=== PATIENT | male | born 1935 | race Caucasian/White ===

== ENCOUNTER → 2018-08-20 | Outpatient (REF) | payer MEDICARE, BC | LOC: M LAB REF 16:59 | PROVIDERS: ATTEND Surgery | DX: L72.3 Sebaceous cyst (principal) ==

== ENCOUNTER 2020-07-01 17:33 | Emergency (ER) | payer MEDICARE, BC ==
[~2020-07-01] VITALS: Ht 177.8 cm; Wt 79.8 kg
[2020-07-01] MEDS ORDERED: LEVO50TA5 (17:47)
[2020-07-01] MEDS ORDERED: FOLI1TAB11 (17:47)
[2020-07-01] MEDS ORDERED: FURO40TA2 (17:47)
[2020-07-01] MEDS ORDERED: HYDR25TAB (17:47)
[2020-07-01] MEDS ORDERED: ZYLO300T6 (17:47)
[2020-07-01] MEDS ORDERED: CARV12.5 (17:47)
[2020-07-01] MEDS ORDERED: POTA1TAB23 (17:47)
[2020-07-01] MEDS ORDERED: GLIP5TAB8 (17:47)
[2020-07-01] MEDS ORDERED: PRED10TA2 (17:47)
[2020-07-01] MEDS ORDERED: ATOR40TA75 (17:47)
[2020-07-01] MEDS ORDERED: TRAM50TA2 (17:47)
[2020-07-01] MEDS ORDERED: MORPHINE 2 MG/ML 1ML VIAL (J2270) IV ONE (19:30)
[2020-07-01] MEDS ORDERED: ONDANSETRON 4MG/2ML VIAL IV ONE (19:30)
[2020-07-01] MEDS ORDERED: NS 500 ML IV ONE (19:30)
[2020-07-01 20:04] LABS: BASO # 0.1 10^3/uL (0.0-0.2); BASO % 0.2 % (0.0-1.0); EOS % 0.2 % (0.0-3.0); HEMATOCRIT 37.5 % (42.0-52.0); HEMOGLOBIN 12.5 g/dl (13.5-17.5); LYMPH # 8.5 10^3/uL (1.5-5.0); LYMPH % 33.9 % (24.0-44.0); MEAN CORPUSCULAR HEMOGLOBIN 35.7 pg (27.0-33.0); MEAN CORPUSCULAR HGB CONC 33.3 g/dl (32.0-36.5); MEAN CORPUSCULAR VOLUME 107.1 fl (80.0-96.0); MONO # 1.4 10^3/uL (0.0-0.8); MONO % 5.6 % (0.0-5.0); NEUTROPHILS # 14.8 10^3/uL (1.5-8.5); NEUTROPHILS % 58.6 % (36.0-66.0)
[2020-07-01 20:07] LABS: WHITE BLOOD COUNT 25.2 10^3/uL (4.0-10.0)
--- NOTE | 2020-07-01 20:10 | REP ---
INDICATION: pain in hip. COMPARISON: None TECHNIQUE: AP and frog-lateral views FINDINGS: The hip joint space is symmetric and relatively well maintained. There is no acute fracture or destructive osseous lesion. IMPRESSION: Negative exam <Electronically signed by Connor Taylor > 07/01/202006
[2020-07-01] MEDS ORDERED: ISOVUE-370 76% 100ML VIAL As Ordered ONE (20:29)
[2020-07-01 20:31] LABS: ALBUMIN 4.6 GM/DL (3.2-5.2); ALT/SGPT 21 U/L (12-78); BILIRUBIN,DIRECT 0.2 MG/DL (0.0-0.2); BILIRUBIN,TOTAL 0.8 MG/DL (0.2-1.0); BLOOD UREA NITROGEN 139 MG/DL (7-18); CALCIUM LEVEL 9.6 MG/DL (8.8-10.2); CARBON DIOXIDE LEVEL 24 MEQ/L (21-32); CHLORIDE LEVEL 100 MEQ/L (98-107); CREATININE FOR GFR 3.12 MG/DL (0.70-1.30); GLOMERULAR FILTRATION RATE 20.4 (>35); GLUCOSE, FASTING 127 MG/DL (70-100); LIPASE 71 U/L (73-393); POTASSIUM SERUM 5.1 MEQ/L (3.5-5.1); SODIUM LEVEL 134 MEQ/L (136-145); TOTAL PROTEIN 8.2 GM/DL (6.4-8.2)
[2020-07-01 20:58] LABS: CK-MB VALUE MASS 1.2 NG/ML (<3.6); CPK CREATINE PHOSPHOKINASE 56 U/L (39-308); MB/CK RELATIVE INDEX 2.14 (< OR =4); NT-PRO BNP 691 PG/ML (<450); TROPONIN I < 0.02 NG/ML (< 0.10)
--- NOTE | 2020-07-01 21:02 | REPVR ---
PROCEDURE INFORMATION: Exam: CT Lumbar Spine Without Contrast Exam date and time: 07/01/2020 8:41 PM Age: 84 years old Clinical indication: Low back pain; Additional info: Severe low back pain TECHNIQUE: Imaging protocol: Computed tomography images of the lumbar spine without contrast. Radiation optimization: All CT scans at this facility use at least one of these dose optimization techniques: automated exposure control; mA and/or kV adjustment per patient size (includes targeted exams where dose is matched to clinical indication); or iterative reconstruction. COMPARISON: No relevant prior studies available. FINDINGS: Vertebrae: There is no lumbar vertebral fracture. The lumbar vertebra maintain their height and alignment. There is no fracture of the posterior elements. T12-L1: There are large Schmorl's nodes. There is disc space narrowing. No disc bulge. No central or foraminal stenosis. L1-L2: Minimal disc bulge and facet hypertrophy. No central or foraminal stenosis. L2-L3: Mild disc bulge. Facet hypertrophy. No central or foraminal stenosis. L3-L4: Disc space narrowing and mild disc bulge. Facet and ligament hypertrophy. No central stenosis. Mild foraminal stenosis. L4-L5: Disc space narrowing. Disc bulge and facet and ligament hypertrophy. No central stenosis. Mild foraminal stenosis. L5-S1: Disc space narrowing. Mild disc bulge. Facet hypertrophy. No central stenosis. Mild right foraminal stenosis. Sacrum/coccyx: There are degenerative changes of the SI joints. Vasculature: There is an infrarenal aortic aneurysm with diameter of 5.0 cm. Also reported on abdominal CT. Soft tissues: Unremarkable IMPRESSION: 1. No fracture or acute findings. 2. Degenerative findings detailed above. Electronically signed by: Christian Randhawa On 07/01/2020 21:02:06 PM
--- NOTE | 2020-07-01 21:10 | REPVR ---
PROCEDURE INFORMATION: Exam: XR Chest, 2 Views Exam date and time: 07/01/2020 8:51 PM Age: 84 years old Clinical indication: Shortness of breath; Additional info: Short of breath TECHNIQUE: Imaging protocol: XR of the chest Views: 2 views. COMPARISON: No relevant prior studies available. FINDINGS: Tubes, catheters and devices: Surgical clips noted in the right lower neck. Lungs: Unremarkable. No consolidation. Pleural space: Unremarkable. No pleural effusion. No pneumothorax. Heart/Mediastinum: Status post aortic valve replacement. Bones/joints: Unremarkable. IMPRESSION: No acute findings. Electronically signed by: Christian Randhawa On 07/01/2020 21:11:11 PM
[2020-07-01] MEDS ORDERED: CARVedilol 12.5 MG TAB PO ONE (21:15)
--- NOTE | 2020-07-01 21:40 | REPVR ---
PROCEDURE INFORMATION: Exam: CT Abdomen And Pelvis Without Contrast Exam date and time: 07/01/2020 8:41 PM Age: 84 years old Clinical indication: Abdominal pain; Localized; Left lower quadrant (llq); Additional info: Severe L flank pain, llq pain TECHNIQUE: Imaging protocol: Computed tomography of the abdomen and pelvis without contrast. Radiation optimization: All CT scans at this facility use at least one of these dose optimization techniques: automated exposure control; mA and/or kV adjustment per patient size (includes targeted exams where dose is matched to clinical indication); or iterative reconstruction. COMPARISON: CR Hip, Ap,Lat LEFT 07/01/2020 7:45 PM FINDINGS: Lungs: There is subsegmental atelectasis in the inferior segment of the lingula. Liver: The liver is normal. Gallbladder and bile ducts: There is a small calcified gallstone in the gallbladder. No wall thickening. Bile ducts are not dilated. Pancreas: The pancreas is normal. Spleen: There is a 15 mm hypodensity in the spleen. Density measurements are consistent with a cyst. The spleen is otherwise normal. Adrenal glands: The adrenals are normal. Kidneys and ureters: There is a 3.0 cm right renal cyst. There is a 2.6 cm left renal cyst. These are simple cysts within the limits of a noncontrast scan. No calculus. No hydronephrosis. Stomach and bowel: There are extensive colonic diverticula particularly in the sigmoid region. No associated wall thickening or inflammation. No bowel distension. Appendix: The appendix is well visualized and is normal. Intraperitoneal space: There is no free fluid or fluid collection. No free air. Vasculature: There is an infrarenal abdominal aortic aneurysm measuring up to 5.0 x 5.4 cm in greatest dimension. As seen on series 201 images 76 to 78 there is a 2.8 cm by 1.0 cm area of slightly decreased density within the anterolateral wall of the aneurysm on the left. There is mild streaky density of the adjacent fat. Lymph nodes: Unremarkable. No enlarged lymph nodes. Urinary bladder: Unremarkable as visualized. Reproductive: Unremarkable as visualized. Bones/joints: Unremarkable. No acute fracture. Soft tissues: Unremarkable. IMPRESSION: 1. 5.0 x 5.4 cm infrarenal aortic aneurysm. Within the most distal aneurysm there is a small intramural hematoma along the anterolateral wall on the left. There is slight streaky density in the adjacent fat. 2. Extensive diverticulosis. No acute inflammatory findings. 3. Cholelithiasis. COMMENTS: Consistent with the [employer]'s Incidental Findings Committee white paper (J Am Barron Radiol 2018): Any incidental renal lesion less than 1 cm or classified as too small to characterize, or any incidental cystic renal lesion characterized as simple-appearing, is likely benign. No follow-up imaging is recommended for these lesions per consensus recommendations based on imaging criteria. Electronically signed by: Christian Randhawa On 07/01/2020 21:40:16 PM
[2020-07-01] MEDS: MORPHINE 4 MG/ML 1ML VIAL/SYRINGE (J2270) IV PRN ×2 (22:01→23:52)
[2020-07-01 22:02] VITALS: BP 199/79
[2020-07-01] MEDS ORDERED: FOLI1TAB11 PO (22:05)
[2020-07-01] MEDS ORDERED: SYNT50TA PO (22:05)
[2020-07-01] MEDS ORDERED: GLIP5TAB8 PO (22:05)
[2020-07-01] MEDS ORDERED: TRAM50TA2 PO (22:05)
[2020-07-01] MEDS ORDERED: D31000TA2 PO (22:05)
[2020-07-01] MEDS ORDERED: ATOR40TA75 PO (22:05)
[2020-07-01] MEDS ORDERED: ACET-897 PO (22:05)
[2020-07-01] MEDS ORDERED: PRED10TA2 PO (22:05)
[2020-07-01] MEDS ORDERED: ZYLO300T6 PO (22:05)
[2020-07-01] MEDS ORDERED: FURO40TA2 PO (22:05)
[2020-07-01] MEDS ORDERED: CARV12.5 PO (22:05)
[2020-07-01] MEDS ORDERED: HYDR25TAB PO (22:05)
[2020-07-01] MEDS ORDERED: MULT1CHW26 PO (22:05)
[2020-07-01] MEDS ORDERED: POTA10TA17 PO (22:05)
[2020-07-01] MEDS ORDERED: PATIENT COMMENT (22:07)
[2020-07-01 23:50] VITALS: BP 120/97
--- NOTE | 2020-07-02 08:46 | ECGEPIP ---
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
== END 2020-07-02 00:58 | disposition short-term general hospital (02) ==
LOC: M ED 17:33
DX: I71.4 Abdominal aortic aneurysm, without rupture (principal); R94.4 Abnormal results of kidney function studies; R10.32 Left lower quadrant pain; I48.91 Unspecified atrial fibrillation; I25.10 Atherosclerotic heart disease of native coronary artery without angina pectoris; I05.9 Rheumatic mitral valve disease, unspecified; E11.9 Type 2 diabetes mellitus without complications; I10 Essential (primary) hypertension; E78.5 Hyperlipidemia, unspecified; Z86.73 Personal history of transient ischemic attack (TIA), and cerebral infarction without residual deficits; G47.33 Obstructive sleep apnea (adult) (pediatric); J44.9 Chronic obstructive pulmonary disease, unspecified; E03.9 Hypothyroidism, unspecified; M10.9 Gout, unspecified; I47.1 Supraventricular tachycardia; Z95.5 Presence of coronary angioplasty implant and graft; M51.45 Schmorl's nodes, thoracolumbar region; K80.20 Calculus of gallbladder without cholecystitis without obstruction; K57.30 Diverticulosis of large intestine without perforation or abscess without bleeding; Z79.84 Long term (current) use of oral hypoglycemic drugs; Z79.899 Other long term (current) drug therapy
CPT/HCPCS: 71046; 72131; 73502; 74176; 80048; 80076; 81001; 82550; 82553; 83605; 83690; 83880; 84484; 85025; 87040; 87077; 87186; 87631; 93005; 93041; 94760; 96361; 96374; 96375; 96376; 99285; J2270; J2405

== ENCOUNTER 2022-05-15 09:41 | Inpatient (IN) | payer MEDICARE, BC ==
[~2022-05-15] VITALS: Ht 177.8 cm; Wt 85.5 kg
[2022-05-15] VITALS (7 sets, daily range): BP systolic 113–159; BP diastolic 72–95
[~2022-05-15 09:41] MED LIST: ACET-897 PO; ATOR40TA75; ATOR40TA75 PO; CARV12.5; CARV12.5 PO; FOLI1TAB11; FOLI1TAB11 PO; FURO40TA2; FURO40TA2 PO; FUROSEMIDE 40MG/4ML VIAL (J1940) IV SCH; GLIP5TAB8; GLIP5TAB8 PO; HYDR-3490; HYDR-3490 PO; LEVO50TA5; MULT1CHW26 PO; PATIENT COMMENT; POTA-150 PO; POTA1TAB23; PRED10TA2; PRED10TA2 PO; SYNT50TA PO; TRAM50TA2; TRAM50TA2 PO; VITA100093 PO; ZYLO300T6; ZYLO300T6 PO
[2022-05-15] MEDS ORDERED: ALLO300T2 PO (11:29)
[2022-05-15] MEDS ORDERED: METF500T13 PO (11:32)
[2022-05-15] MEDS ORDERED: HOME MED LIST COMPLETE! XX SCH (11:35)
[2022-05-15 11:47] LABS: BASO % 0.4 % (0.0-1.0); EOS # 0.1 10^3/uL (0.0-0.5); EOS % 1.8 % (0.0-3.0); HEMATOCRIT 28.6 % (42.0-52.0); HEMOGLOBIN 9.1 g/dl (13.5-17.5); LYMPH # 1.8 10^3/uL (1.5-5.0); LYMPH % 32.3 % (24.0-44.0); MEAN CORPUSCULAR HEMOGLOBIN 36.5 pg (27.0-33.0); MEAN CORPUSCULAR HGB CONC 31.8 g/dl (32.0-36.5); MONO # 0.4 10^3/uL (0.0-0.8); MONO % 6.8 % (2.0-8.0); NEUTROPHILS # 3.2 10^3/uL (1.5-8.5); RED BLOOD COUNT 2.49 10^6/uL (4.30-6.10); WHITE BLOOD COUNT 5.5 10^3/uL (4.0-10.0)
[2022-05-15 11:55] LABS: INR 1.07; PROTHROMBIN TIME 14.1 SECONDS (12.5-14.5)
[2022-05-15 12:15] LABS: ALBUMIN 3.3 GM/DL (3.2-5.2); BILIRUBIN,TOTAL 0.4 MG/DL (0.2-1.0); CALCIUM LEVEL 8.2 MG/DL (8.8-10.2); CREATININE FOR GFR 2.22 MG/DL (0.70-1.30); MAGNESIUM LEVEL 2.3 MG/DL (1.8-2.4); POTASSIUM SERUM 4.6 MEQ/L (3.5-5.1); TOTAL PROTEIN 6.1 GM/DL (6.4-8.2)
[2022-05-15 12:54] LABS: MEAN CORPUSCULAR VOLUME 114.9 fl (80.0-96.0)
[2022-05-15 12:56] LABS: PLATELET COUNT, AUTOMATED 40 10^3/uL (150-450)
[2022-05-15] MEDS: METOPROLOL TART 25 MG TABLET PO SCH ×2 (12:56→17:44)
[2022-05-15] MEDS ORDERED: DEXTROSE 50% 50 ML SYRINGE IV PRN (17:05)
[2022-05-15] MEDS ORDERED: GLUCAGON INJ 1MG VIAL SC PRN (17:05)
[2022-05-15] MEDS ORDERED: GLUCOSE 4GM CHEW TABLET PO PRN (17:05)
[2022-05-15] MEDS: INSULIN LISPRO (NovoLOG) PER UNIT SC SCH ×2 (17:43→20:32)
[2022-05-15 18:11] LABS: PLTBLUE- EDTA FREE CALC 51 K/mm3 (172-450)
[2022-05-15 18:37] LABS: PLTBLUE- EDTA FREE MACHINE 46 10^3/uL (172-450)
[2022-05-15] MEDS ORDERED: allopurinoL 300 MG TAB PO SCH (21:00)
[2022-05-16] VITALS (7 sets, daily range): BP systolic 104–142; BP diastolic 61–84
[2022-05-16] MEDS: METOPROLOL TART 25 MG TABLET PO SCH ×5 (00:35→23:51)
[2022-05-16 05:19] LABS: HEMATOCRIT 30.7 % (42.0-52.0); HEMOGLOBIN 9.5 g/dl (13.5-17.5); MEAN CORPUSCULAR HEMOGLOBIN 35.8 pg (27.0-33.0); MEAN CORPUSCULAR HGB CONC 30.9 g/dl (32.0-36.5); RED BLOOD COUNT 2.65 10^6/uL (4.30-6.10); WHITE BLOOD COUNT 6.9 10^3/uL (4.0-10.0)
[2022-05-16 05:21] LABS: MEAN CORPUSCULAR VOLUME 115.8 fl (80.0-96.0)
[2022-05-16 05:22] LABS: PLATELET COUNT, AUTOMATED 40 10^3/uL (150-450)
[2022-05-16 05:50] LABS: CALCIUM LEVEL 8.1 MG/DL (8.8-10.2); CREATININE FOR GFR 2.3 MG/DL (0.70-1.30); GLOMERULAR FILTRATION RATE 28.8 (>35); MAGNESIUM LEVEL 2.2 MG/DL (1.8-2.4); POTASSIUM SERUM 4.8 MEQ/L (3.5-5.1)
[2022-05-16] MEDS: LEVOTHYROXINE 50MCG TABLET (0.05MG) PO SCH (06:41)
[2022-05-16 08:06] LABS: THYROID STIMULATING HORMONE 3.01 uIU/ML (0.358-3.740)
[2022-05-16] MEDS: ATORVASTATIN 20 MG TAB PO SCH (08:48)
[2022-05-16] MEDS: FOLIC ACID 1MG TAB PO SCH (08:48)
[2022-05-16] MEDS: AMIODARONE 200 MG TAB (PACERONE) PO SCH ×3 (08:48→20:23)
[2022-05-16] MEDS: FUROSEMIDE 100MG/10ML VIAL (J1940) IV SCH (08:49)
[2022-05-16] MEDS: INSULIN LISPRO (NovoLOG) PER UNIT SC SCH ×4 (08:50→20:22)
[2022-05-16] MEDS ORDERED: ACETAMINOPHEN TAB 650MG DOSE (2X325MG) PO PRN (16:30)
[2022-05-17 04:00] VITALS: BP 122/80
[2022-05-17 06:20] LABS: HEMATOCRIT 30.8 % (42.0-52.0); HEMOGLOBIN 9.9 g/dl (13.5-17.5); MEAN CORPUSCULAR HEMOGLOBIN 36.5 pg (27.0-33.0); MEAN CORPUSCULAR HGB CONC 32.1 g/dl (32.0-36.5); MEAN CORPUSCULAR VOLUME 113.7 fl (80.0-96.0); RED BLOOD COUNT 2.71 10^6/uL (4.30-6.10); WHITE BLOOD COUNT 7.8 10^3/uL (4.0-10.0)
[2022-05-17 06:21] LABS: PLATELET COUNT, AUTOMATED 38 10^3/uL (150-450)
[2022-05-17] MEDS: METOPROLOL TART 25 MG TABLET PO SCH ×3 (06:41→17:03)
[2022-05-17] MEDS: AMIODARONE 200 MG TAB (PACERONE) PO SCH ×3 (06:42→20:59)
[2022-05-17] MEDS: LEVOTHYROXINE 50MCG TABLET (0.05MG) PO SCH (06:42)
[2022-05-17 06:55] LABS: CALCIUM LEVEL 8.1 MG/DL (8.8-10.2); CREATININE FOR GFR 2.85 MG/DL (0.70-1.30); GLOMERULAR FILTRATION RATE 22.5 (>35); MAGNESIUM LEVEL 2.4 MG/DL (1.8-2.4); POTASSIUM SERUM 4.7 MEQ/L (3.5-5.1)
[2022-05-17] MEDS: INSULIN LISPRO (NovoLOG) PER UNIT SC SCH ×4 (07:30→20:58)
[2022-05-17 08:17] VITALS: BP 106/58
[2022-05-17] MEDS: FUROSEMIDE 100MG/10ML VIAL (J1940) IV SCH (08:19)
[2022-05-17] MEDS: ATORVASTATIN 20 MG TAB PO SCH (08:19)
[2022-05-17] MEDS: FOLIC ACID 1MG TAB PO SCH (08:19)
[2022-05-17 12:08] VITALS: BP 120/73
[2022-05-17 16:48] VITALS: BP 113/69
[2022-05-17 17:39] LABS: HEPATITIS B CORE ANTIBODY IGM NEGATIVE (NEGATIVE); HEPATITIS B SURFACE ANTIGEN NEGATIVE (NEGATIVE); HEPATITIS C VIRUS ABY INDEX < 0.0 INDEX (<0.8); HIV 1&2 SCREEN CENTAUR NEGATIVE (NEGATIVE)
[2022-05-17 20:00] VITALS: BP 127/82
[2022-05-17] MEDS ORDERED: diphenhydrAMINE 25MG CAP PO ONE (21:15)
[2022-05-18] VITALS (8 sets, daily range): BP systolic 96–122; BP diastolic 59–73
[2022-05-18] MEDS: METOPROLOL TART 25 MG TABLET PO SCH ×5 (00:14→23:39)
[2022-05-18 05:35] LABS: HEMATOCRIT 32.9 % (42.0-52.0); HEMOGLOBIN 10.4 g/dl (13.5-17.5); MEAN CORPUSCULAR HEMOGLOBIN 36.4 pg (27.0-33.0); MEAN CORPUSCULAR HGB CONC 31.6 g/dl (32.0-36.5); RED BLOOD COUNT 2.86 10^6/uL (4.30-6.10); WHITE BLOOD COUNT 9.5 10^3/uL (4.0-10.0)
[2022-05-18 05:39] LABS: PLATELET COUNT, AUTOMATED 44 10^3/uL (150-450)
[2022-05-18 05:59] LABS: CALCIUM LEVEL 8.1 MG/DL (8.8-10.2); CREATININE FOR GFR 3.82 MG/DL (0.70-1.30); GLOMERULAR FILTRATION RATE 16.1 (>35); MAGNESIUM LEVEL 2.4 MG/DL (1.8-2.4); POTASSIUM SERUM 5.5 MEQ/L (3.5-5.1)
[2022-05-18] MEDS: LEVOTHYROXINE 50MCG TABLET (0.05MG) PO SCH (06:46)
[2022-05-18] MEDS: AMIODARONE 200 MG TAB (PACERONE) PO SCH ×3 (06:46→22:11)
[2022-05-18] MEDS: INSULIN LISPRO (NovoLOG) PER UNIT SC SCH ×4 (08:44→19:59)
[2022-05-18] MEDS: FOLIC ACID 1MG TAB PO SCH (08:45)
[2022-05-18] MEDS: ATORVASTATIN 20 MG TAB PO SCH (08:45)
[2022-05-18] MEDS ORDERED: PATIROMER SORBITEX CALCIUM 8.4 GM POWDER PACKET (VELTASSA) PO ONE (09:00)
[2022-05-18] MEDS ORDERED: FUROSEMIDE 100MG/10ML VIAL (J1940) IV SCH (09:00)
[2022-05-18] MEDS ORDERED: LIDOCAINE 1% MDV 20ML VIAL As Ordered ONE (11:20)
[2022-05-18 14:48] LABS: BASO % 0.4 % (0.0-1.0); EOS % 0.4 % (0.0-3.0); HEMATOCRIT 33.1 % (42.0-52.0); HEMOGLOBIN 10.7 g/dl (13.5-17.5); LYMPH # 2.8 10^3/uL (1.5-5.0); LYMPH % 28.7 % (24.0-44.0); MEAN CORPUSCULAR HEMOGLOBIN 36.6 pg (27.0-33.0); MEAN CORPUSCULAR HGB CONC 32.3 g/dl (32.0-36.5); MEAN CORPUSCULAR VOLUME 113.4 fl (80.0-96.0); MONO # 0.8 10^3/uL (0.0-0.8); MONO % 8.3 % (2.0-8.0); NEUTROPHILS % 61.3 % (36.0-66.0); RED BLOOD COUNT 2.92 10^6/uL (4.30-6.10); WHITE BLOOD COUNT 9.8 10^3/uL (4.0-10.0)
[2022-05-18 15:15] LABS: APPEARANCE, URINE MANUAL HAZY (CLEAR); COLOR, URINE MANUAL YELLOW (YELLOW)
[2022-05-18 15:16] LABS: BILIRUBIN, URINE MANUAL NEGATIVE (NEGATIVE); BLOOD URINE MANUAL TRACE (NEGATIVE); KETONE, URINE MANUAL NEGATIVE (NEGATIVE); LEUKOCYTE ESTERASE, URINE MAN NEGATIVE (NEGATIVE); NITRITE, URINE MANUAL NEGATIVE (NEGATIVE); PROTEIN, URINE MANUAL 3+ mg/dL (NEGATIVE); SPECIFIC GRAVITY,URINE MANUAL 1.025 (1.002-1.035); UROBILINOGEN, URINE MANUAL NORMAL (NORMAL)
[2022-05-18 15:17] LABS: GLUCOSE, URINE (UA) MANUAL TRACE(50 MG/DL) mg/dL (NEGATIVE)
[2022-05-18 15:35] LABS: BACTERIA, URINE NONE SEEN; HYALINE CAST, URINE NONE SEEN /lpf (0-1); SQUAMOUS EPITHELIAL CELL URINE SMALL AMOUNT /hpf (SMALL AMT)
[2022-05-18] MEDS ORDERED: PATIROMER SORBITEX CALCIUM 8.4 GM POWDER PACKET (VELTASSA) PO SCH (16:00)
[2022-05-18] MEDS: PATIROMER SORBITEX CALCIUM 8.4 GM POWDER PACKET (VELTASSA) PO SCH (16:34)
[2022-05-19] VITALS: BP 108/76
[2022-05-19 04:00] VITALS: BP 113/57
[2022-05-19 05:17] LABS: HEMATOCRIT 31.8 % (42.0-52.0); HEMOGLOBIN 10.3 g/dl (13.5-17.5); MEAN CORPUSCULAR HEMOGLOBIN 36.1 pg (27.0-33.0); MEAN CORPUSCULAR HGB CONC 32.4 g/dl (32.0-36.5); MEAN CORPUSCULAR VOLUME 111.6 fl (80.0-96.0); RED BLOOD COUNT 2.85 10^6/uL (4.30-6.10); WHITE BLOOD COUNT 8.9 10^3/uL (4.0-10.0)
[2022-05-19] MEDS: LEVOTHYROXINE 50MCG TABLET (0.05MG) PO SCH (05:30)
[2022-05-19] MEDS: METOPROLOL TART 25 MG TABLET PO SCH ×3 (05:30→17:11)
[2022-05-19] MEDS: AMIODARONE 200 MG TAB (PACERONE) PO SCH (05:30)
[2022-05-19 05:55] LABS: ALBUMIN 3.3 GM/DL (3.2-5.2); BILIRUBIN,TOTAL 0.7 MG/DL (0.2-1.0); CALCIUM LEVEL 8.4 MG/DL (8.8-10.2); CREATININE FOR GFR 4.17 MG/DL (0.70-1.30); GLOMERULAR FILTRATION RATE 14.5 (>35); POTASSIUM SERUM 4.8 MEQ/L (3.5-5.1); TOTAL PROTEIN 6.3 GM/DL (6.4-8.2)
[2022-05-19] MEDS: INSULIN LISPRO (NovoLOG) PER UNIT SC SCH ×4 (07:30→21:55)
[2022-05-19 08:00] VITALS: BP 121/73
[2022-05-19] MEDS: FOLIC ACID 1MG TAB PO SCH (08:41)
[2022-05-19] MEDS: ATORVASTATIN 20 MG TAB PO SCH (08:41)
[2022-05-19 12:00] VITALS: BP 129/64
[2022-05-19] MEDS ORDERED: FUROSEMIDE 100MG/10ML VIAL (J1940) IV ONE (13:10)
[2022-05-19 15:26] LABS: PLTBLUE- EDTA FREE CALC 53 K/mm3 (172-450)
[2022-05-19 15:33] LABS: PLTBLUE- EDTA FREE MACHINE 48 10^3/uL (172-450)
[2022-05-19 16:00] VITALS: BP 133/66
[2022-05-19 17:08] LABS: ANTINUCLEAR ANTIBODIES DIRECT Negative (Negative); H PYLORI SERUM QUANT IgG ABY 0.56 (0.00-0.79); HEPARIN INDUCED PLATELET ABY 0.127 OD (0.000-0.400)
[2022-05-19] MEDS: PATIROMER SORBITEX CALCIUM 8.4 GM POWDER PACKET (VELTASSA) PO SCH (17:11)
[2022-05-19 20:00] VITALS: BP 112/64
[2022-05-20] VITALS (10 sets, daily range): BP systolic 97–121; BP diastolic 54–72
[2022-05-20] MEDS: METOPROLOL TART 25 MG TABLET PO SCH ×5 (01:16→23:05)
[2022-05-20 06:24] LABS: HEMATOCRIT 30.5 % (42.0-52.0); HEMOGLOBIN 9.8 g/dl (13.5-17.5); MEAN CORPUSCULAR HEMOGLOBIN 36.2 pg (27.0-33.0); MEAN CORPUSCULAR HGB CONC 32.1 g/dl (32.0-36.5); MEAN CORPUSCULAR VOLUME 112.5 fl (80.0-96.0); RED BLOOD COUNT 2.71 10^6/uL (4.30-6.10); WHITE BLOOD COUNT 8.6 10^3/uL (4.0-10.0)
[2022-05-20] MEDS: LEVOTHYROXINE 50MCG TABLET (0.05MG) PO SCH (06:28)
[2022-05-20 06:53] LABS: ALBUMIN 3.1 GM/DL (3.2-5.2); BILIRUBIN,TOTAL 0.5 MG/DL (0.2-1.0); CALCIUM LEVEL 8.1 MG/DL (8.8-10.2); CREATININE FOR GFR 4.4 MG/DL (0.70-1.30); GLOMERULAR FILTRATION RATE 13.6 (>35); POTASSIUM SERUM 4.6 MEQ/L (3.5-5.1)
[2022-05-20] MEDS: AMIODARONE 200 MG TAB (PACERONE) PO SCH (08:14)
[2022-05-20] MEDS: FOLIC ACID 1MG TAB PO SCH (08:14)
[2022-05-20] MEDS: INSULIN LISPRO (NovoLOG) PER UNIT SC SCH ×4 (08:14→20:17)
[2022-05-20] MEDS: ATORVASTATIN 20 MG TAB PO SCH (08:14)
[2022-05-20] MEDS ORDERED: AMIODARONE 200 MG TAB (PACERONE) PO SCH (09:00)
[2022-05-20] MEDS ORDERED: FUROSEMIDE 100MG/10ML VIAL (J1940) IV ONE (09:50)
[2022-05-20 09:59] LABS: PLTBLUE- EDTA FREE MACHINE 18 10^3/uL (172-450)
[2022-05-20 10:03] LABS: PLTBLUE- EDTA FREE CALC 20 K/mm3 (172-450)
[2022-05-20] MEDS: PATIROMER SORBITEX CALCIUM 8.4 GM POWDER PACKET (VELTASSA) PO SCH (17:55)
[2022-05-21 04:00] VITALS: BP 98/60
[2022-05-21] MEDS: METOPROLOL TART 25 MG TABLET PO SCH (04:48)
[2022-05-21] MEDS: LEVOTHYROXINE 50MCG TABLET (0.05MG) PO SCH (05:01)
[2022-05-21 06:56] LABS: PLTBLUE- EDTA FREE MACHINE 39 10^3/uL (172-450)
[2022-05-21 06:57] LABS: PLTBLUE- EDTA FREE CALC 43 K/mm3 (172-450)
[2022-05-21 07:20] LABS: ALBUMIN 3.2 GM/DL (3.2-5.2); BILIRUBIN,TOTAL 0.7 MG/DL (0.2-1.0); CALCIUM LEVEL 8.2 MG/DL (8.8-10.2); CREATININE FOR GFR 3.86 MG/DL (0.70-1.30); GLOMERULAR FILTRATION RATE 15.9 (>35); POTASSIUM SERUM 3.8 MEQ/L (3.5-5.1); TOTAL PROTEIN 6.1 GM/DL (6.4-8.2)
[2022-05-21 07:37] VITALS: BP 108/68
[2022-05-21 07:58] LABS: HEMATOCRIT 30.4 % (42.0-52.0); MEAN CORPUSCULAR HEMOGLOBIN 36.9 pg (27.0-33.0); MEAN CORPUSCULAR HGB CONC 32.9 g/dl (32.0-36.5); MEAN CORPUSCULAR VOLUME 112.2 fl (80.0-96.0); RED BLOOD COUNT 2.71 10^6/uL (4.30-6.10); WHITE BLOOD COUNT 6.1 10^3/uL (4.0-10.0)
[2022-05-21 08:16] LABS: PLATELET COUNT, AUTOMATED 25 10^3/uL (150-450)
[2022-05-21] MEDS: AMIODARONE 200 MG TAB (PACERONE) PO SCH (08:42)
[2022-05-21] MEDS: INSULIN LISPRO (NovoLOG) PER UNIT SC SCH ×4 (08:42→21:45)
[2022-05-21] MEDS: FOLIC ACID 1MG TAB PO SCH (08:42)
[2022-05-21] MEDS ORDERED: FLUBLOK(EGG FREE)(QUAD)INFLUENZA VACC 0.5ML SYRINGE 18YRS & OLDER IM.IMMUN ONE (11:00)
[2022-05-21] MEDS: METOPROLOL TART 50 MG TAB PO SCH ×2 (12:30→21:00)
[2022-05-21 15:36] VITALS: BP 117/69
[2022-05-21 20:30] VITALS: BP 119/64
[2022-05-21 21:43] VITALS: BP 108/58
[2022-05-22 04:00] VITALS: BP 118/59
[2022-05-22] MEDS: LEVOTHYROXINE 50MCG TABLET (0.05MG) PO SCH (06:08)
[2022-05-22 07:43] VITALS: BP 138/69
[2022-05-22 07:43] LABS: HEMATOCRIT 30.4 % (42.0-52.0); HEMOGLOBIN 9.9 g/dl (13.5-17.5); MEAN CORPUSCULAR HEMOGLOBIN 36.4 pg (27.0-33.0); MEAN CORPUSCULAR HGB CONC 32.6 g/dl (32.0-36.5); MEAN CORPUSCULAR VOLUME 111.8 fl (80.0-96.0); RED BLOOD COUNT 2.72 10^6/uL (4.30-6.10); WHITE BLOOD COUNT 5.7 10^3/uL (4.0-10.0)
[2022-05-22 07:45] LABS: PLATELET COUNT, AUTOMATED 39 10^3/uL (150-450)
[2022-05-22 07:54] LABS: PLTBLUE- EDTA FREE CALC 24 K/mm3 (172-450)
[2022-05-22 08:13] LABS: PLTBLUE- EDTA FREE MACHINE 22 10^3/uL (172-450)
[2022-05-22 08:20] LABS: CREATININE FOR GFR 3.25 MG/DL (0.70-1.30); GLOMERULAR FILTRATION RATE 19.4 (>35)
[2022-05-22 08:21] LABS: ALBUMIN 3.3 GM/DL (3.2-5.2); BILIRUBIN,TOTAL 0.6 MG/DL (0.2-1.0); CALCIUM LEVEL 8.3 MG/DL (8.8-10.2); TOTAL PROTEIN 6.1 GM/DL (6.4-8.2)
[2022-05-22] MEDS: FOLIC ACID 1MG TAB PO SCH (08:44)
[2022-05-22] MEDS: METOPROLOL TART 50 MG TAB PO SCH ×2 (08:45→19:56)
[2022-05-22] MEDS: AMIODARONE 200 MG TAB (PACERONE) PO SCH ×2 (08:45→19:56)
[2022-05-22] MEDS: INSULIN LISPRO (NovoLOG) PER UNIT SC SCH ×4 (08:52→19:46)
[2022-05-22] MEDS: LEVEMIR (INSULIN DETEMIR) 1 UNITS/0.01ML SC SCH (08:52)
[2022-05-22] MEDS ORDERED: POTASSIUM CHLORIDE 10MEQ SR TABLET PO ONE (10:25)
[2022-05-22] MEDS ORDERED: FUROSEMIDE 100MG/10ML VIAL (J1940) IV ONE (10:25)
[2022-05-22 12:00] VITALS: BP 105/61
[2022-05-22 17:00] VITALS: BP 136/80
[2022-05-22 20:00] VITALS: BP 118/62
[2022-05-23 04:00] VITALS: BP 108/57
[2022-05-23] MEDS: LEVOTHYROXINE 50MCG TABLET (0.05MG) PO SCH (05:46)
[2022-05-23 07:17] LABS: PLTBLUE- EDTA FREE CALC 40 K/mm3 (172-450)
[2022-05-23 07:45] LABS: ALBUMIN 3.4 GM/DL (3.2-5.2); BILIRUBIN,TOTAL 0.7 MG/DL (0.2-1.0); CALCIUM LEVEL 8.1 MG/DL (8.8-10.2); CREATININE FOR GFR 2.85 MG/DL (0.70-1.30); GLOMERULAR FILTRATION RATE 22.5 (>35); POTASSIUM SERUM 4.4 MEQ/L (3.5-5.1); TOTAL PROTEIN 6.1 GM/DL (6.4-8.2)
[2022-05-23] MEDS: LEVEMIR (INSULIN DETEMIR) 1 UNITS/0.01ML SC SCH (08:08)
[2022-05-23] MEDS: METOPROLOL TART 50 MG TAB PO SCH ×2 (08:09→20:42)
[2022-05-23] MEDS: FOLIC ACID 1MG TAB PO SCH (08:09)
[2022-05-23] MEDS: INSULIN LISPRO (NovoLOG) PER UNIT SC SCH ×4 (08:09→20:38)
[2022-05-23] MEDS: AMIODARONE 200 MG TAB (PACERONE) PO SCH ×2 (08:09→20:42)
[2022-05-23 08:16] LABS: PLTBLUE- EDTA FREE MACHINE 36 10^3/uL (172-450)
[2022-05-23 08:19] LABS: HEMOGLOBIN 9.6 g/dl (13.5-17.5); MEAN CORPUSCULAR HEMOGLOBIN 36.2 pg (27.0-33.0); MEAN CORPUSCULAR VOLUME 113.2 fl (80.0-96.0); RED BLOOD COUNT 2.65 10^6/uL (4.30-6.10)
[2022-05-23 08:20] LABS: PLATELET COUNT, AUTOMATED 35 10^3/uL (150-450)
[2022-05-23 08:23] VITALS: BP 124/79
[2022-05-23] MEDS ORDERED: FUROSEMIDE 100MG/10ML VIAL (J1940) IV ONE (10:30)
[2022-05-23] MEDS ORDERED: POTASSIUM CHLORIDE 10MEQ SR TABLET PO ONE (10:30)
[2022-05-23 12:23] VITALS: BP 126/68
[2022-05-23 16:00] VITALS: BP 116/25
[2022-05-23 17:45] VITALS: BP 130/80
[2022-05-23 20:00] VITALS: BP 120/64
[2022-05-24 05:20] VITALS: BP 116/65
[2022-05-24] MEDS: LEVOTHYROXINE 50MCG TABLET (0.05MG) PO SCH (05:24)
[2022-05-24 08:43] LABS: HEMATOCRIT 31.1 % (42.0-52.0); HEMOGLOBIN 10.1 g/dl (13.5-17.5); MEAN CORPUSCULAR HGB CONC 32.5 g/dl (32.0-36.5); MEAN CORPUSCULAR VOLUME 113.9 fl (80.0-96.0); RED BLOOD COUNT 2.73 10^6/uL (4.30-6.10)
[2022-05-24 08:52] LABS: PLATELET COUNT, AUTOMATED 35 10^3/uL (150-450)
[2022-05-24] MEDS ORDERED: METOPROLOL TART 50 MG TAB PO SCH (09:00)
[2022-05-24 09:18] VITALS: BP 129/82
[2022-05-24] MEDS: INSULIN LISPRO (NovoLOG) PER UNIT SC SCH ×2 (09:19→12:22)
[2022-05-24] MEDS: FOLIC ACID 1MG TAB PO SCH (09:19)
[2022-05-24] MEDS: LEVEMIR (INSULIN DETEMIR) 1 UNITS/0.01ML SC SCH (09:20)
[2022-05-24] MEDS: AMIODARONE 200 MG TAB (PACERONE) PO SCH (09:24)
[2022-05-24 09:25] LABS: ALBUMIN 3.5 GM/DL (3.2-5.2); CALCIUM LEVEL 8.6 MG/DL (8.8-10.2); CREATININE FOR GFR 2.83 MG/DL (0.70-1.30); GLOMERULAR FILTRATION RATE 22.7 (>35); PHOSPHORUS LEVEL 3.7 MG/DL (2.5-4.9); POTASSIUM SERUM 4.2 MEQ/L (3.5-5.1)
[2022-05-24] MEDS ORDERED: TORSEMIDE 20 MG TAB PO ONE (10:40)
[2022-05-24] MEDS ORDERED: POTA-136 PO (11:14)
[2022-05-24] MEDS ORDERED: AMIO200T49 PO (11:14)
[2022-05-24] MEDS ORDERED: TORS20TA2 PO (11:14)
[2022-05-24] MEDS ORDERED: LOPR1TAB6 PO (11:14)
[2022-05-24] MEDS ORDERED: TORSEMIDE 20 MG TAB PO SCH (17:00)
[2022-05-24] MEDS ORDERED: POTASSIUM CHLORIDE 10MEQ SR TABLET PO SCH (21:00)
== END 2022-05-24 14:04 | disposition home or self-care (01) | DRG 813 ==
LOC: M ICU 09:48 → M PCU 05-19 14:58 → M MSPAV 05-23 17:21
PROVIDERS: ADMIT Internal Medicine; ATTEND Student in an Organized Health Care Education/Training Program
PROC: B246ZZZ Ultrasonography of Right and Left Heart (ICD-10-PCS; 2022-05-15)
PROC: 07DR3ZX Extraction of Iliac Bone Marrow, Percutaneous Approach, Diagnostic (ICD-10-PCS; 2022-05-18)
PROC: 30233R1 Transfusion of Nonautologous Platelets into Peripheral Vein, Percutaneous Approach (ICD-10-PCS; principal; 2022-05-20)
DX: D69.6 Thrombocytopenia, unspecified (principal); I50.23 Acute on chronic systolic (congestive) heart failure; I48.92 Unspecified atrial flutter; N18.4 Chronic kidney disease, stage 4 (severe); I13.0 Hypertensive heart and chronic kidney disease with heart failure and stage 1 through stage 4 chronic kidney disease, or unspecified chronic kidney disease; I42.8 Other cardiomyopathies; N17.9 Acute kidney failure, unspecified; Z66 Do not resuscitate; I77.1 Stricture of artery; Z95.2 Presence of prosthetic heart valve; E78.5 Hyperlipidemia, unspecified; I48.91 Unspecified atrial fibrillation; E11.22 Type 2 diabetes mellitus with diabetic chronic kidney disease; E03.9 Hypothyroidism, unspecified; I25.10 Atherosclerotic heart disease of native coronary artery without angina pectoris; I44.7 Left bundle-branch block, unspecified; M10.9 Gout, unspecified; G47.33 Obstructive sleep apnea (adult) (pediatric); I12.9 Hypertensive chronic kidney disease with stage 1 through stage 4 chronic kidney disease, or unspecified chronic kidney disease; Z87.891 Personal history of nicotine dependence; Z79.84 Long term (current) use of oral hypoglycemic drugs; Z79.890 Hormone replacement therapy; Z79.899 Other long term (current) drug therapy; Z98.41 Cataract extraction status, right eye; Z98.42 Cataract extraction status, left eye; D53.9 Nutritional anemia, unspecified; I27.20 Pulmonary hypertension, unspecified; J44.9 Chronic obstructive pulmonary disease, unspecified; E87.5 Hyperkalemia; R74.01 Elevation of levels of liver transaminase levels

== ENCOUNTER 2022-06-24 07:42 | Inpatient (IN) | payer MEDICARE, BC ==
[~2022-06-24] VITALS: Ht 177.8 cm; Wt 82.7 kg
[~2022-06-24 07:42] MED LIST changes: +ALLO300T2 PO; +AMIO200T49 PO; -FUROSEMIDE 40MG/4ML VIAL (J1940) IV SCH; +LOPR1TAB6 PO; +METF500T13 PO; +POTA-136 PO; +TORS20TA2 PO
[2022-06-24] MEDS ORDERED: ATORVASTATIN 20 MG TAB PO SCH (09:00)
[2022-06-24 09:12] LABS: BASO % 0.3 % (0.0-1.0); EOS % 0.2 % (0.0-3.0); HEMATOCRIT 32.3 % (42.0-52.0); HEMOGLOBIN 10.2 g/dl (13.5-17.5); LYMPH # 2.7 10^3/uL (1.5-5.0); LYMPH % 26.6 % (24.0-44.0); MEAN CORPUSCULAR HEMOGLOBIN 37.4 pg (27.0-33.0); MEAN CORPUSCULAR HGB CONC 31.6 g/dl (32.0-36.5); MONO # 0.5 10^3/uL (0.0-0.8); MONO % 5.2 % (2.0-8.0); NEUTROPHILS # 6.7 10^3/uL (1.5-8.5); NEUTROPHILS % 66.8 % (36.0-66.0); RED BLOOD COUNT 2.73 10^6/uL (4.30-6.10)
[2022-06-24 09:29] LABS: MEAN CORPUSCULAR VOLUME 118.3 fl (80.0-96.0)
[2022-06-24 09:33] LABS: PLATELET CLUMPS SMALL AMT; PLATELET ESTIMATE MARKED DECREASE (NORMAL); POLYCHROMASIA 1+
[2022-06-24 09:34] LABS: ANISOCYTOSIS 1+; CRENATED RBC 1+; OVALOCYTES 1+; POIKILOCYTOSIS 2+
[2022-06-24 09:35] LABS: HYPOCHROMASIA 1+
[2022-06-24 09:36] LABS: SCHISTOCYTES 1+
[2022-06-24 09:48] LABS: RSV AMPLIFICATION NEGATIVE (NEGATIVE)
[2022-06-24 11:06] LABS: ALBUMIN 3.7 G/DL (3.2-5.2); BILIRUBIN,DIRECT 0.4 MG/DL (<0.4); BILIRUBIN,TOTAL 0.7 MG/DL (0.3-1.2); CALCIUM LEVEL 8.7 MG/DL (8.3-10.6); CK-MB VALUE MASS 1.7 NG/ML (<3.6); CREATININE FOR GFR 5.69 MG/DL (0.70-1.30); GLOMERULAR FILTRATION RATE 10.1 (>35); MB/CK RELATIVE INDEX 5.48 (< OR =4); POTASSIUM SERUM 6.5 MMOL/L (3.5-5.1); TOTAL PROTEIN 6.2 G/DL (5.7-8.2)
[2022-06-24 11:25] LABS: CK-MB VALUE MASS 1.8 NG/ML (<3.6); MB/CK RELATIVE INDEX 4.5 (< OR =4)
[2022-06-24] MEDS ORDERED: PATIROMER SORBITEX CALCIUM 8.4 GM POWDER PACKET (VELTASSA) PO ONE ×2 (11:25→14:05)
[2022-06-24] MEDS ORDERED: CALCIUM GLUCONATE 1,000MG/10ML VIAL (100MG/ML) (J0610) IV ONE (11:25)
[2022-06-24] MEDS ORDERED: AMIO200T49 PO (13:04)
[2022-06-24] MEDS ORDERED: POTA-150 PO (13:04)
[2022-06-24] MEDS ORDERED: TORS20TA2 PO (13:04)
[2022-06-24] MEDS ORDERED: METO50TA7 PO (13:04)
[2022-06-24] MEDS ORDERED: ROCA0.25 PO (13:04)
[2022-06-24] MEDS ORDERED: HOME MED LIST COMPLETE! XX SCH (13:05)
[2022-06-24] MEDS ORDERED: DEXTROSE 50% 50 ML SYRINGE IV STA (14:05)
[2022-06-24] MEDS ORDERED: HumuLIN R (REGULAR) INSULIN (NovoLIN R) **100U/ML** PER UNIT IV STA (14:05)
[2022-06-24] MEDS ORDERED: DEXTROSE 50% 50 ML SYRINGE IV PRN (14:10)
[2022-06-24] MEDS ORDERED: GLUCAGON INJ 1MG VIAL SC PRN (14:10)
[2022-06-24] MEDS ORDERED: GLUCOSE 4GM CHEW TABLET PO PRN (14:10)
[2022-06-24 15:53] VITALS: BP 115/70
[2022-06-24] MEDS ORDERED: FUROSEMIDE injection 250 MG in D5W 225 ML IV SCH (16:00)
[2022-06-24] MEDS: FUROSEMIDE injection 250 MG in D5W 225 ML IV SCH (16:53)
[2022-06-24] MEDS: MIDODRINE 5 MG TAB PO SCH (16:53)
[2022-06-24] MEDS: INSULIN LISPRO (NovoLOG) PER UNIT SC SCH ×2 (16:54→20:37)
[2022-06-24 16:56] LABS: BASO % 0.3 % (0.0-1.0); EOS % 0.2 % (0.0-3.0); HEMATOCRIT 32.7 % (42.0-52.0); HEMOGLOBIN 10.4 g/dl (13.5-17.5); LYMPH # 2.7 10^3/uL (1.5-5.0); LYMPH % 27.2 % (24.0-44.0); MEAN CORPUSCULAR HEMOGLOBIN 37.3 pg (27.0-33.0); MEAN CORPUSCULAR HGB CONC 31.8 g/dl (32.0-36.5); MONO # 0.8 10^3/uL (0.0-0.8); MONO % 7.6 % (2.0-8.0); NEUTROPHILS # 6.3 10^3/uL (1.5-8.5); NEUTROPHILS % 63.8 % (36.0-66.0); RED BLOOD COUNT 2.79 10^6/uL (4.30-6.10); WHITE BLOOD COUNT 9.9 10^3/uL (4.0-10.0)
[2022-06-24 16:57] LABS: MEAN CORPUSCULAR VOLUME 117.2 fl (80.0-96.0); PLATELET COUNT, AUTOMATED 51 10^3/uL (150-450)
[2022-06-24 17:35] LABS: ANISOCYTOSIS 2+; MICROCYTOSIS 1+; POLYCHROMASIA 1+
[2022-06-24 17:36] LABS: PLATELET ESTIMATE MARKED DECREASE (NORMAL)
[2022-06-24 17:48] LABS: CALCIUM LEVEL 9.6 MG/DL (8.3-10.6); CREATININE FOR GFR 5.73 MG/DL (0.70-1.30); GLOMERULAR FILTRATION RATE 10.1 (>35); POTASSIUM SERUM 5.9 MMOL/L (3.5-5.1)
[2022-06-24] MEDS ORDERED: ACETAMINOPHEN 500 MG TAB PO PRN (18:10)
[2022-06-24 20:30] VITALS: BP 91/53
[2022-06-24] MEDS: METOPROLOL TART 12.5 MG PER 1/2 TAB PO SCH (20:36)
[2022-06-24] MEDS: AMIODARONE 200 MG TAB (PACERONE) PO SCH (20:51)
[2022-06-25] VITALS (14 sets, daily range): BP systolic 99–113; BP diastolic 52–73; O2SAT 91–98
[2022-06-25] MEDS: LEVOTHYROXINE 50MCG TABLET (0.05MG) PO SCH (06:07)
[2022-06-25 06:35] LABS: HEMATOCRIT 31.5 % (42.0-52.0); MEAN CORPUSCULAR HEMOGLOBIN 37.3 pg (27.0-33.0); MEAN CORPUSCULAR HGB CONC 31.7 g/dl (32.0-36.5); RED BLOOD COUNT 2.68 10^6/uL (4.30-6.10); WHITE BLOOD COUNT 8.1 10^3/uL (4.0-10.0)
[2022-06-25 07:02] LABS: MEAN CORPUSCULAR VOLUME 117.5 fl (80.0-96.0)
[2022-06-25 07:03] LABS: PLATELET COUNT, AUTOMATED 40 10^3/uL (150-450)
[2022-06-25 07:09] LABS: CALCIUM LEVEL 9.1 MG/DL (8.3-10.6); CREATININE FOR GFR 5.62 MG/DL (0.70-1.30); GLOMERULAR FILTRATION RATE 10.3 (>35); MAGNESIUM LEVEL 2.5 MG/DL (1.8-2.4); POTASSIUM SERUM 5.7 MMOL/L (3.5-5.1)
[2022-06-25] MEDS: INSULIN LISPRO (NovoLOG) PER UNIT SC SCH ×4 (07:30→20:14)
[2022-06-25] MEDS: FOLIC ACID 1MG TAB PO SCH (08:33)
[2022-06-25] MEDS: ATORVASTATIN 20 MG TAB PO SCH (08:33)
[2022-06-25] MEDS: AMIODARONE 200 MG TAB (PACERONE) PO SCH ×2 (08:33→20:19)
[2022-06-25] MEDS: MIDODRINE 5 MG TAB PO SCH ×3 (08:33→16:14)
[2022-06-25] MEDS: CALCITRIOL 0.25 MCG CAP (S0169) PO SCH (08:33)
[2022-06-25] MEDS: METOPROLOL TART 12.5 MG PER 1/2 TAB PO SCH ×2 (08:34→20:15)
[2022-06-25 09:37] LABS: CREATININE,RANDOM URINE 46.4 MG/DL
[2022-06-25] MEDS ORDERED: PATIROMER SORBITEX CALCIUM 8.4 GM POWDER PACKET (VELTASSA) PO ONE (11:00)
[2022-06-25] MEDS: FUROSEMIDE injection 250 MG in D5W 225 ML IV SCH (17:46)
[2022-06-26] VITALS (24 sets, daily range): BP systolic 97–130; BP diastolic 56–72; O2SAT 88–99
[2022-06-26] MEDS: LEVOTHYROXINE 50MCG TABLET (0.05MG) PO SCH (06:18)
[2022-06-26 06:27] LABS: HEMATOCRIT 30.8 % (42.0-52.0); HEMOGLOBIN 9.7 g/dl (13.5-17.5); MEAN CORPUSCULAR HEMOGLOBIN 36.9 pg (27.0-33.0); MEAN CORPUSCULAR HGB CONC 31.5 g/dl (32.0-36.5); RED BLOOD COUNT 2.63 10^6/uL (4.30-6.10); WHITE BLOOD COUNT 7.7 10^3/uL (4.0-10.0)
[2022-06-26 06:48] LABS: ALBUMIN 3.7 G/DL (3.2-5.2); BILIRUBIN,TOTAL 0.7 MG/DL (0.3-1.2); CALCIUM LEVEL 8.7 MG/DL (8.3-10.6); CREATININE FOR GFR 5.01 MG/DL (0.70-1.30); GLOMERULAR FILTRATION RATE 11.7 (>35); MAGNESIUM LEVEL 2.4 MG/DL (1.8-2.4); POTASSIUM SERUM 4.6 MMOL/L (3.5-5.1); TOTAL PROTEIN 6.4 G/DL (5.7-8.2)
[2022-06-26 07:18] LABS: MEAN CORPUSCULAR VOLUME 117.1 fl (80.0-96.0)
[2022-06-26] MEDS: INSULIN LISPRO (NovoLOG) PER UNIT SC SCH ×4 (08:50→20:10)
[2022-06-26] MEDS: CALCITRIOL 0.25 MCG CAP (S0169) PO SCH (08:51)
[2022-06-26] MEDS: METOPROLOL TART 12.5 MG PER 1/2 TAB PO SCH ×2 (08:51→20:12)
[2022-06-26] MEDS: AMIODARONE 200 MG TAB (PACERONE) PO SCH ×2 (08:51→20:12)
[2022-06-26] MEDS: FOLIC ACID 1MG TAB PO SCH (08:51)
[2022-06-26] MEDS: MIDODRINE 5 MG TAB PO SCH ×3 (08:52→16:41)
[2022-06-26] MEDS: ATORVASTATIN 20 MG TAB PO SCH (08:52)
[2022-06-26] MEDS: FUROSEMIDE injection 250 MG in D5W 225 ML IV SCH (17:47)
[2022-06-27] VITALS (11 sets, daily range): BP systolic 103–122; BP diastolic 55–74; O2SAT 92–99
[2022-06-27] MEDS: LEVOTHYROXINE 50MCG TABLET (0.05MG) PO SCH (05:42)
[2022-06-27 05:55] LABS: HEMATOCRIT 29.9 % (42.0-52.0); HEMOGLOBIN 9.5 g/dl (13.5-17.5); MEAN CORPUSCULAR HEMOGLOBIN 36.8 pg (27.0-33.0); MEAN CORPUSCULAR HGB CONC 31.8 g/dl (32.0-36.5); MEAN CORPUSCULAR VOLUME 115.9 fl (80.0-96.0); PLATELET COUNT, AUTOMATED 34 10^3/uL (150-450); RED BLOOD COUNT 2.58 10^6/uL (4.30-6.10); WHITE BLOOD COUNT 5.8 10^3/uL (4.0-10.0)
[2022-06-27 06:19] LABS: POTASSIUM SERUM 4.3 MMOL/L (3.5-5.1)
[2022-06-27 06:20] LABS: ALBUMIN 3.7 G/DL (3.2-5.2)
[2022-06-27 06:24] LABS: MAGNESIUM LEVEL 2.3 MG/DL (1.8-2.4)
[2022-06-27 06:25] LABS: CALCIUM LEVEL 8.7 MG/DL (8.3-10.6)
[2022-06-27 06:26] LABS: BILIRUBIN,TOTAL 0.9 MG/DL (0.3-1.2); TOTAL PROTEIN 6.4 G/DL (5.7-8.2)
[2022-06-27 06:27] LABS: CREATININE FOR GFR 4.17 MG/DL (0.70-1.30); GLOMERULAR FILTRATION RATE 14.5 (>35); PHOSPHORUS LEVEL 5.6 MG/DL (2.4-5.1)
[2022-06-27] MEDS: METOPROLOL TART 12.5 MG PER 1/2 TAB PO SCH ×2 (08:40→20:36)
[2022-06-27] MEDS: AMIODARONE 200 MG TAB (PACERONE) PO SCH ×2 (08:41→20:37)
[2022-06-27] MEDS: FOLIC ACID 1MG TAB PO SCH (08:41)
[2022-06-27] MEDS: MIDODRINE 5 MG TAB PO SCH (08:41)
[2022-06-27] MEDS: ATORVASTATIN 20 MG TAB PO SCH (08:41)
[2022-06-27] MEDS: CALCITRIOL 0.25 MCG CAP (S0169) PO SCH (08:41)
[2022-06-27] MEDS: INSULIN LISPRO (NovoLOG) PER UNIT SC SCH ×4 (08:43→20:31)
[2022-06-27] MEDS: TORSEMIDE 20 MG TAB PO SCH (10:22)
[2022-06-27] MEDS ORDERED: PILL CUTTER 1 EACH XX ONE (13:27)
[2022-06-27] MEDS: MIDODRINE 2.5 MG TAB PO SCH ×2 (13:31→18:01)
[2022-06-28] VITALS (9 sets, daily range): BP systolic 105–111; BP diastolic 50–67; O2SAT 94–95
[2022-06-28] MEDS: LEVOTHYROXINE 50MCG TABLET (0.05MG) PO SCH (05:08)
[2022-06-28 05:18] LABS: HEMATOCRIT 29.6 % (42.0-52.0); HEMOGLOBIN 9.6 g/dl (13.5-17.5); MEAN CORPUSCULAR HEMOGLOBIN 37.1 pg (27.0-33.0); MEAN CORPUSCULAR HGB CONC 32.4 g/dl (32.0-36.5); RED BLOOD COUNT 2.59 10^6/uL (4.30-6.10); WHITE BLOOD COUNT 6.3 10^3/uL (4.0-10.0)
[2022-06-28 05:21] LABS: MEAN CORPUSCULAR VOLUME 114.3 fl (80.0-96.0); PLATELET COUNT, AUTOMATED 34 10^3/uL (150-450)
[2022-06-28 05:36] LABS: CHLORIDE LEVEL 104 MMOL/L (98-107); POTASSIUM SERUM 3.9 MMOL/L (3.5-5.1); SODIUM LEVEL 144 MMOL/L (136-145)
[2022-06-28 05:37] LABS: ALBUMIN 3.8 G/DL (3.2-5.2); CARBON DIOXIDE LEVEL 29 MMOL/L (20-31)
[2022-06-28 05:41] LABS: CALCIUM LEVEL 8.6 MG/DL (8.3-10.6); GLUCOSE, FASTING 164 MG/DL (74-106)
[2022-06-28 05:42] LABS: BLOOD UREA NITROGEN 138 MG/DL (9-23); MAGNESIUM LEVEL 1.9 MG/DL (1.8-2.4)
[2022-06-28 05:43] LABS: ALKALINE PHOSPHATASE 74 U/L (46-116)
[2022-06-28 05:44] LABS: ALT/SGPT 244 U/L (7.0-40); AST/SGOT 153 U/L (<34); BILIRUBIN,TOTAL 1.2 MG/DL (0.3-1.2); CREATININE FOR GFR 3.57 MG/DL (0.70-1.30); GLOMERULAR FILTRATION RATE 17.4 (>35); TOTAL PROTEIN 6.4 G/DL (5.7-8.2)
[2022-06-28] MEDS ORDERED: POTASSIUM CHLORIDE 10MEQ SR TABLET PO SCH (09:00)
[2022-06-28] MEDS: METOPROLOL TART 12.5 MG PER 1/2 TAB PO SCH (09:00)
[2022-06-28] MEDS: ATORVASTATIN 20 MG TAB PO SCH (09:05)
[2022-06-28] MEDS: FOLIC ACID 1MG TAB PO SCH (09:05)
[2022-06-28] MEDS: CALCITRIOL 0.25 MCG CAP (S0169) PO SCH (09:05)
[2022-06-28] MEDS: TORSEMIDE 20 MG TAB PO SCH (09:05)
[2022-06-28] MEDS: AMIODARONE 200 MG TAB (PACERONE) PO SCH (09:05)
[2022-06-28] MEDS: INSULIN LISPRO (NovoLOG) PER UNIT SC SCH ×3 (09:06→17:05)
[2022-06-28] MEDS ORDERED: POTA-136 PO (10:36)
[2022-06-28] MEDS ORDERED: TORS20TA2 PO (10:36)
[2022-06-28] MEDS ORDERED: METO1TAB87 PO (10:36)
[2022-06-28 11:58] LABS: HEPATITIS B CORE ANTIBODY IGM NEGATIVE (NEGATIVE)
[2022-06-28 13:00] LABS: HEPATITIS B SURFACE ANTIGEN NEGATIVE (NEGATIVE)
== END 2022-06-28 18:00 | disposition home or self-care (01) | DRG 291 ==
LOC: M ED 07:42 → EDBD 07:42 → M PCU 14:01 → ENRESERV 14:43
PROVIDERS: ADMIT Internal Medicine; ATTEND Internal Medicine
DX: I13.0 Hypertensive heart and chronic kidney disease with heart failure and stage 1 through stage 4 chronic kidney disease, or unspecified chronic kidney disease (principal); I50.23 Acute on chronic systolic (congestive) heart failure; N18.4 Chronic kidney disease, stage 4 (severe); N17.9 Acute kidney failure, unspecified; Z95.5 Presence of coronary angioplasty implant and graft; Z95.2 Presence of prosthetic heart valve; E78.5 Hyperlipidemia, unspecified; I48.91 Unspecified atrial fibrillation; E11.22 Type 2 diabetes mellitus with diabetic chronic kidney disease; E03.9 Hypothyroidism, unspecified; J44.9 Chronic obstructive pulmonary disease, unspecified; D46.9 Myelodysplastic syndrome, unspecified; I25.10 Atherosclerotic heart disease of native coronary artery without angina pectoris; I44.7 Left bundle-branch block, unspecified; G47.33 Obstructive sleep apnea (adult) (pediatric); D69.6 Thrombocytopenia, unspecified; Z87.891 Personal history of nicotine dependence; M10.9 Gout, unspecified; E87.5 Hyperkalemia; R74.01 Elevation of levels of liver transaminase levels; Z79.890 Hormone replacement therapy; Z66 Do not resuscitate; Z79.84 Long term (current) use of oral hypoglycemic drugs; Z79.899 Other long term (current) drug therapy; I27.20 Pulmonary hypertension, unspecified; I08.1 Rheumatic disorders of both mitral and tricuspid valves; Z20.822 Contact with and (suspected) exposure to COVID-19

== ENCOUNTER 2022-08-26 15:22 | Inpatient (IN) | payer MEDICARE, BC ==
[~2022-08-26] VITALS: Ht 177.8 cm; Wt 87.8 kg
[~2022-08-26 15:22] MED LIST changes: +METO1TAB87 PO; +METO50TA7 PO; +ROCA0.25 PO
[2022-08-26] MEDS ORDERED: MORPHINE 2 MG/ML 1ML VIAL IV ONE (17:20)
[2022-08-26 17:35] LABS: BASO # 0.1 10^3/uL (0.0-0.2); BASO % 0.5 % (0.0-1.0); EOS % 0.1 % (0.0-3.0); HEMATOCRIT 31.9 % (42.0-52.0); LYMPH # 3.1 10^3/uL (1.5-5.0); LYMPH % 30.2 % (24.0-44.0); MEAN CORPUSCULAR HEMOGLOBIN 38.3 pg (27.0-33.0); MEAN CORPUSCULAR HGB CONC 31.3 g/dl (32.0-36.5); MONO # 0.6 10^3/uL (0.0-0.8); NEUTROPHILS # 6.3 10^3/uL (1.5-8.5); NEUTROPHILS % 61.6 % (36.0-66.0); RED BLOOD COUNT 2.61 10^6/uL (4.30-6.10); WHITE BLOOD COUNT 10.2 10^3/uL (4.0-10.0)
[2022-08-26 17:53] LABS: CALCIUM LEVEL 9.1 MG/DL (8.3-10.6); CREATININE FOR GFR 6.21 MG/DL (0.70-1.30); GLOMERULAR FILTRATION RATE 9.2 (>35); MEAN CORPUSCULAR VOLUME 122.2 fl (80.0-96.0); POTASSIUM SERUM 7.3 MMOL/L (3.5-5.1)
[2022-08-26] MEDS ORDERED: CALCIUM GLUCONATE 1,000 MG in D5W MINI-BAG PLUS 100 ML IV ONE (17:55)
[2022-08-26 17:57] LABS: POLYCHROMASIA 1+
[2022-08-26 17:58] LABS: ANISOCYTOSIS 2+; PLATELET CLUMPS MODERATE AMT; PLATELET ESTIMATE INVALID (NORMAL); POIKILOCYTOSIS 2+; SCHISTOCYTES 1+; TEAR DROP CELLS 1+
[2022-08-26 18:00] LABS: CRENATED RBC 2+
[2022-08-26] MEDS ORDERED: DEXTROSE 50% 50ML SYRINGE IV STA ×2 (18:08→23:00)
[2022-08-26] MEDS ORDERED: SODIUM BICARBONATE 50 MEQ in NS 0.45% 1,000 ML IV SCH (18:10)
[2022-08-26] MEDS ORDERED: HumuLIN R (REGULAR) INSULIN (NovoLIN R) **100U/ML** PER UNIT IV ONE (18:10)
[2022-08-26] MEDS ORDERED: METO1TAB87 PO (18:50)
[2022-08-26] MEDS ORDERED: TORS20TA2 PO (18:50)
[2022-08-26] MEDS ORDERED: HOME MED LIST COMPLETE! XX SCH (18:50)
[2022-08-26] MEDS ORDERED: POTA-149 PO (18:50)
[2022-08-26 19:19] LABS: RSV AMPLIFICATION NEGATIVE (NEGATIVE)
[2022-08-26] MEDS: AMIODARONE 200 MG TAB (PACERONE) PO SCH (21:00)
[2022-08-26] MEDS ORDERED: GLUCAGON INJ 1MG VIAL SC PRN (21:25)
[2022-08-26] MEDS ORDERED: DEXTROSE 50% 50ML SYRINGE IV PRN (21:25)
[2022-08-26] MEDS ORDERED: GLUCOSE 4GM CHEW TABLET PO PRN (21:25)
[2022-08-26] MEDS ORDERED: FUROSEMIDE 100MG/10ML VIAL IV ONE (22:00)
[2022-08-26] MEDS ORDERED: HumuLIN R (REGULAR) INSULIN (NovoLIN R) **100U/ML** PER UNIT IV STA (23:00)
[2022-08-26 23:04] VITALS: BP 138/97
[2022-08-26] MEDS: SODIUM BICARBONATE 50 MEQ in NS 0.45% 1,000 ML IV SCH (23:59)
[2022-08-27] MEDS ORDERED: ALBUTEROL SULFATE 2.5MG/0.5ML INH NEB SOLN NEB ONE
[2022-08-27] MEDS ORDERED: SOD POLYSTYRENE SULFONATE SUSP 15GM 60ML UD PO ONE
[2022-08-27] MEDS ORDERED: CALCIUM GLUCONATE 1,000 MG in D5W MINI-BAG PLUS 100 ML IV ONE ×2
[2022-08-27 04:00] VITALS: BP 102/54
[2022-08-27 04:30] LABS: HEMATOCRIT 28.5 % (42.0-52.0); MEAN CORPUSCULAR HGB CONC 31.6 g/dl (32.0-36.5); RED BLOOD COUNT 2.37 10^6/uL (4.30-6.10); WHITE BLOOD COUNT 11.6 10^3/uL (4.0-10.0)
[2022-08-27 04:47] LABS: MEAN CORPUSCULAR VOLUME 120.3 fl (80.0-96.0)
[2022-08-27 05:00] LABS: CALCIUM LEVEL 8.2 MG/DL (8.3-10.6); CREATININE FOR GFR 6.66 MG/DL (0.70-1.30); GLOMERULAR FILTRATION RATE 8.5 (>35); MAGNESIUM LEVEL 2.4 MG/DL (1.8-2.4)
[2022-08-27] MEDS: LEVOTHYROXINE 75MCG TABLET (0.075MG) PO SCH (05:14)
[2022-08-27] MEDS: SODIUM BICARBONATE 50 MEQ in NS 0.45% 1,000 ML IV SCH (05:14)
[2022-08-27 06:21] LABS: ABG BASE EXCESS -11.7 (-2.0-2.0); ABG HCO3 14.5 MEQ/L (22.0-26.0); ABG O2 SATURATION 97.2 % (95.0-99.0); ABG PARTIAL PRESSURE CO2 33.8 mmHg (35.0-45.0); ABG PARTIAL PRESSURE O2 114.6 mmHg (75.0-100.0); ABG STANDARD HCO3 15.1 MEQ/L (22.0-26.0); ABG TOTAL CO2 15.5 MEQ/L (23.0-31.0)
[2022-08-27] MEDS: AMIODARONE 200 MG TAB (PACERONE) PO SCH ×2 (08:14→20:37)
[2022-08-27] MEDS: CALCITRIOL 0.25 MCG CAP (S0169) PO SCH (08:14)
[2022-08-27] MEDS: ATORVASTATIN 20 MG TAB PO SCH (08:14)
[2022-08-27] MEDS: allopurinoL 300 MG TAB PO SCH (08:14)
[2022-08-27] MEDS: PIPERACILLIN/TAZOBACTAM SOD 2.25 GM in D5W MINI-BAG PLUS 50 ML IV SCH ×3 (08:14→23:21)
[2022-08-27] MEDS: FOLIC ACID 1MG TAB PO SCH (08:14)
[2022-08-27] MEDS: INSULIN LISPRO (NovoLOG) PER UNIT SC SCH ×4 (08:16→20:32)
[2022-08-27 08:45] VITALS: BP 94/50
[2022-08-27] MEDS ORDERED: VANCOMYCIN HCL 1,000 MG, VIAL MATE ADAPTER 1 EACH in NS 250 ML IV ONE (09:00)
[2022-08-27] MEDS: METOPROLOL TART 12.5 MG PER 1/2 TAB PO SCH ×2 (10:13→20:37)
[2022-08-27] MEDS: SODIUM BICARBONATE 150 MEQ in STERILE WATER LITER BAG 1,000 ML IV SCH ×2 (11:06→23:21)
[2022-08-27 11:53] VITALS: BP 119/54
[2022-08-27 12:14] LABS: ALBUMIN 3.4 G/DL (3.2-5.2); CALCIUM LEVEL 7.5 MG/DL (8.3-10.6); CREATININE FOR GFR 6.51 MG/DL (0.70-1.30); GLOMERULAR FILTRATION RATE 8.7 (>35); PHOSPHORUS LEVEL 10.1 MG/DL (2.4-5.1)
[2022-08-27 15:14] LABS: APPEARANCE, URINE MANUAL HAZY (CLEAR); COLOR, URINE MANUAL YELLOW (YELLOW)
[2022-08-27 15:15] LABS: BILIRUBIN, URINE MANUAL NEGATIVE (NEGATIVE); GLUCOSE, URINE (UA) MANUAL NEGATIVE (NEGATIVE); KETONE, URINE MANUAL NEGATIVE (NEGATIVE); NITRITE, URINE MANUAL NEGATIVE (NEGATIVE); PROTEIN, URINE MANUAL 1+ mg/dL (NEGATIVE); SPECIFIC GRAVITY,URINE MANUAL 1.015 (1.002-1.035); UROBILINOGEN, URINE MANUAL NORMAL (NORMAL)
[2022-08-27 15:16] LABS: BLOOD URINE MANUAL POSITIVE (NEGATIVE); LEUKOCYTE ESTERASE, URINE MAN NEGATIVE (NEGATIVE)
[2022-08-27 15:23] LABS: BACTERIA, URINE NONE SEEN; HYALINE CAST, URINE NONE SEEN /lpf (0-1); SQUAMOUS EPITHELIAL CELL URINE SMALL AMOUNT /hpf (SMALL AMT); WBC, URINE NONE SEEN /hpf (0-3)
[2022-08-27 16:00] VITALS: BP 119/59
[2022-08-27 18:27] LABS: CALCIUM LEVEL 7.5 MG/DL (8.3-10.6); CREATININE FOR GFR 6.17 MG/DL (0.70-1.30); GLOMERULAR FILTRATION RATE 9.2 (>35); POTASSIUM SERUM 5.7 MMOL/L (3.5-5.1)
[2022-08-27 20:00] VITALS: BP 113/53
[2022-08-28] VITALS (7 sets, daily range): BP systolic 91–192; BP diastolic 46–98
[2022-08-28 05:40] LABS: HEMATOCRIT 25.1 % (42.0-52.0); HEMOGLOBIN 8.3 g/dl (13.5-17.5); MEAN CORPUSCULAR HEMOGLOBIN 38.6 pg (27.0-33.0); MEAN CORPUSCULAR HGB CONC 33.1 g/dl (32.0-36.5); RED BLOOD COUNT 2.15 10^6/uL (4.30-6.10); WHITE BLOOD COUNT 7.5 10^3/uL (4.0-10.0)
[2022-08-28 05:49] LABS: MEAN CORPUSCULAR VOLUME 116.7 fl (80.0-96.0); PLATELET COUNT, AUTOMATED 41 10^3/uL (150-450)
[2022-08-28 05:56] LABS: ALBUMIN 3.2 G/DL (3.2-5.2); CALCIUM LEVEL 7.5 MG/DL (8.3-10.6); CREATININE FOR GFR 5.91 MG/DL (0.70-1.30); GLOMERULAR FILTRATION RATE 9.7 (>35); PHOSPHORUS LEVEL 7.4 MG/DL (2.4-5.1); POTASSIUM SERUM 4.5 MMOL/L (3.5-5.1)
[2022-08-28] MEDS: LEVOTHYROXINE 75MCG TABLET (0.075MG) PO SCH (06:09)
[2022-08-28] MEDS: ACETAMINOPHEN TAB 650MG DOSE (2X325MG) PO PRN (06:15)
[2022-08-28] MEDS: METOPROLOL TART 12.5 MG PER 1/2 TAB PO SCH ×2 (08:22→21:04)
[2022-08-28] MEDS: FOLIC ACID 1MG TAB PO SCH (08:33)
[2022-08-28] MEDS: AMIODARONE 200 MG TAB (PACERONE) PO SCH ×2 (08:33→21:03)
[2022-08-28] MEDS: CALCITRIOL 0.25 MCG CAP (S0169) PO SCH (08:33)
[2022-08-28] MEDS: INSULIN LISPRO (NovoLOG) PER UNIT SC SCH ×4 (08:34→21:00)
[2022-08-28] MEDS: ATORVASTATIN 20 MG TAB PO SCH (08:34)
[2022-08-28] MEDS: PIPERACILLIN/TAZOBACTAM SOD 2.25 GM in D5W MINI-BAG PLUS 50 ML IV SCH ×2 (08:34→15:25)
[2022-08-28] MEDS: allopurinoL 300 MG TAB PO SCH (08:34)
[2022-08-28 09:10] LABS: VANCOMYCIN RANDOM 8.4 UG/ML
[2022-08-28] MEDS: SODIUM BICARBONATE 150 MEQ in STERILE WATER LITER BAG 1,000 ML IV SCH (11:16)
[2022-08-28] MEDS ORDERED: VANCOMYCIN HCL 500 MG in D5W MINI-BAG PLUS 100 ML IV ONE (12:10)
[2022-08-28] MEDS: NS 1,000 ML IV SCH (12:32)
[2022-08-29] VITALS: BP 92/39
[2022-08-29] MEDS: PIPERACILLIN/TAZOBACTAM SOD 2.25 GM in D5W MINI-BAG PLUS 50 ML IV SCH ×2 (00:10→08:05)
[2022-08-29 04:00] VITALS: BP 92/52
[2022-08-29 05:05] LABS: HEMOGLOBIN 7.9 g/dl (13.5-17.5); MEAN CORPUSCULAR HEMOGLOBIN 38.7 pg (27.0-33.0); MEAN CORPUSCULAR HGB CONC 32.9 g/dl (32.0-36.5); RED BLOOD COUNT 2.04 10^6/uL (4.30-6.10); WHITE BLOOD COUNT 7.5 10^3/uL (4.0-10.0)
[2022-08-29 05:11] LABS: MEAN CORPUSCULAR VOLUME 117.6 fl (80.0-96.0)
[2022-08-29 05:12] LABS: PLATELET COUNT, AUTOMATED 41 10^3/uL (150-450)
[2022-08-29 05:31] LABS: ALBUMIN 2.9 G/DL (3.2-5.2); BLOOD UREA NITROGEN 149 MG/DL (9-23); CALCIUM LEVEL 7.7 MG/DL (8.3-10.6); CARBON DIOXIDE LEVEL 28 MMOL/L (20-31); CHLORIDE LEVEL 99 MMOL/L (98-107); CREATININE FOR GFR 5.24 MG/DL (0.70-1.30); GLOMERULAR FILTRATION RATE 11.2 (>35); GLUCOSE, FASTING 160 MG/DL (74-106); PHOSPHORUS LEVEL 6.5 MG/DL (2.4-5.1); SODIUM LEVEL 139 MMOL/L (136-145)
[2022-08-29] MEDS: LEVOTHYROXINE 75MCG TABLET (0.075MG) PO SCH (06:06)
[2022-08-29] MEDS: NS 1,000 ML IV SCH (06:50)
[2022-08-29 08:05] VITALS: BP 122/58
[2022-08-29] MEDS: METOPROLOL TART 12.5 MG PER 1/2 TAB PO SCH (08:05)
[2022-08-29] MEDS: FOLIC ACID 1MG TAB PO SCH (08:06)
[2022-08-29] MEDS: allopurinoL 300 MG TAB PO SCH (08:06)
[2022-08-29] MEDS: ATORVASTATIN 20 MG TAB PO SCH (08:06)
[2022-08-29] MEDS: CALCITRIOL 0.25 MCG CAP (S0169) PO SCH (08:06)
[2022-08-29] MEDS: AMIODARONE 200 MG TAB (PACERONE) PO SCH (08:06)
[2022-08-29] MEDS: INSULIN LISPRO (NovoLOG) PER UNIT SC SCH ×3 (08:07→17:50)
[2022-08-29] MEDS: ACETAMINOPHEN TAB 650MG DOSE (2X325MG) PO PRN (08:09)
[2022-08-29 08:11] VITALS: BP 122/58
[2022-08-29] MEDS ORDERED: FUROSEMIDE 100MG/10ML VIAL IV ONE (09:45)
[2022-08-29 10:46] LABS: HEPATITIS B SURFACE ANTIGEN NEGATIVE (NEGATIVE)
[2022-08-29 10:49] LABS: HEPATITIS B SURFACE ANTIBODY NEGATIVE (POSITIVE)
[2022-08-29 10:51] LABS: HEPATITIS B CORE ANTIBODY IGM NEGATIVE (NEGATIVE); HEPATITIS C VIRUS ABY INDEX 0.1 INDEX (<0.8)
[2022-08-29 12:25] VITALS: BP 107/62
[2022-08-29 16:21] VITALS: BP 107/53
[2022-08-29] MEDS ORDERED: ONDANSETRON 4MG ORAL DISINTEGRATING TAB PO PRN (19:25)
[2022-08-29] MEDS ORDERED: LORazepam 1 MG TAB PO PRN (19:25)
[2022-08-29] MEDS ORDERED: SCOPOLAMINE 1MG TRANSDERMAL PATCH TOP PRN (19:25)
[2022-08-29] MEDS ORDERED: MORPHINE 10MG/0.5ML ORAL CONCENTRATE SOLUTION U/D SL PRN (19:25)
[2022-08-31] MEDS: SODIUM CHLORIDE NASAL 0.65% SPRAY BTL (OCEAN) SCH ×2 (09:00→21:01)
[2022-09-01] MEDS: MORPHINE 10MG/0.5ML ORAL CONCENTRATE SOLUTION U/D SL PRN (00:37)
[2022-09-01] MEDS: SODIUM CHLORIDE NASAL 0.65% SPRAY BTL (OCEAN) SCH ×2 (08:08→19:55)
[2022-09-01] MEDS: CETIRIZINE (ZyrTEC) 10 MG TAB PO SCH (20:49)
[2022-09-02] MEDS ORDERED: CEPACOL LOZENGE PO PRN (01:40)
[2022-09-02] MEDS ORDERED: OXYMETAZOLINE 0.05% NASAL SPRAY (AFRIN) PRN (03:20)
[2022-09-02 06:08] LABS: HEMATOCRIT 25.6 % (42.0-52.0); HEMOGLOBIN 7.9 g/dl (13.5-17.5); MEAN CORPUSCULAR HEMOGLOBIN 37.8 pg (27.0-33.0); MEAN CORPUSCULAR HGB CONC 30.9 g/dl (32.0-36.5); RED BLOOD COUNT 2.09 10^6/uL (4.30-6.10); WHITE BLOOD COUNT 6.1 10^3/uL (4.0-10.0)
[2022-09-02 06:16] LABS: MEAN CORPUSCULAR VOLUME 122.5 fl (80.0-96.0); PLATELET COUNT, AUTOMATED 34 10^3/uL (150-450)
[2022-09-02 06:38] LABS: ALBUMIN 3.1 G/DL (3.2-5.2); CALCIUM LEVEL 8.4 MG/DL (8.3-10.6); CREATININE FOR GFR 2.28 MG/DL (0.70-1.30); GLOMERULAR FILTRATION RATE 29.1 (>35); POTASSIUM SERUM 4.4 MMOL/L (3.5-5.1)
[2022-09-02] MEDS: SODIUM CHLORIDE NASAL 0.65% SPRAY BTL (OCEAN) SCH ×2 (08:51→20:21)
[2022-09-02] MEDS: CETIRIZINE (ZyrTEC) 10 MG TAB PO SCH (20:21)
[2022-09-03 05:40] LABS: HEMATOCRIT 26.1 % (42.0-52.0); HEMOGLOBIN 8.1 g/dl (13.5-17.5); MEAN CORPUSCULAR HEMOGLOBIN 38.2 pg (27.0-33.0); RED BLOOD COUNT 2.12 10^6/uL (4.30-6.10)
[2022-09-03 05:49] LABS: MEAN CORPUSCULAR VOLUME 123.1 fl (80.0-96.0); PLATELET COUNT, AUTOMATED 34 10^3/uL (150-450)
[2022-09-03 05:55] LABS: ALBUMIN 3.2 G/DL (3.2-5.2); CALCIUM LEVEL 8.5 MG/DL (8.3-10.6); CREATININE FOR GFR 2.2 MG/DL (0.70-1.30); GLOMERULAR FILTRATION RATE 30.4 (>35); PHOSPHORUS LEVEL 3.8 MG/DL (2.4-5.1); POTASSIUM SERUM 4.4 MMOL/L (3.5-5.1)
[2022-09-03] MEDS: SODIUM CHLORIDE NASAL 0.65% SPRAY BTL (OCEAN) SCH ×2 (08:35→21:17)
[2022-09-03] MEDS: MORPHINE 10MG/0.5ML ORAL CONCENTRATE SOLUTION U/D SL PRN (21:16)
[2022-09-03] MEDS: CETIRIZINE (ZyrTEC) 10 MG TAB PO SCH (21:17)
[2022-09-04 09:24] VITALS: BP 83/65
[2022-09-04] MEDS: DAPAGLIFLOZIN PROPANEDIOL 10MG TABLET (FARXIGA) PO SCH (13:48)
[2022-09-04] MEDS: SITagliptin 50 MG TAB (JANUVIA) PO SCH (13:49)
[2022-09-04] MEDS: SODIUM CHLORIDE NASAL 0.65% SPRAY BTL (OCEAN) SCH ×2 (13:52→20:34)
[2022-09-04] MEDS ORDERED: Sodium Chloride Nasal Spray (18:09)
[2022-09-04] MEDS ORDERED: SITA50TAB PO (18:09)
[2022-09-04] MEDS ORDERED: MORP1SOL SL (18:09)
[2022-09-04] MEDS ORDERED: FARX1TAB3 PO (18:09)
[2022-09-04] MEDS ORDERED: TRAN1DIS4 TOP (18:09)
[2022-09-04] MEDS ORDERED: ATOR1TAB21 PO (18:09)
[2022-09-04] MEDS ORDERED: AMIO200T49 PO (18:09)
[2022-09-04] MEDS: CETIRIZINE (ZyrTEC) 10 MG TAB PO SCH (20:33)
[2022-09-04] MEDS ORDERED: ATORVASTATIN 20 MG TAB PO SCH (21:00)
[2022-09-05] MEDS ORDERED: LEVOTHYROXINE 50MCG TABLET (0.05MG) PO SCH (06:00)
[2022-09-05] MEDS: DAPAGLIFLOZIN PROPANEDIOL 10MG TABLET (FARXIGA) PO SCH (08:49)
[2022-09-05] MEDS: SODIUM CHLORIDE NASAL 0.65% SPRAY BTL (OCEAN) SCH (08:49)
[2022-09-05] MEDS: SITagliptin 50 MG TAB (JANUVIA) PO SCH (08:50)
[2022-09-05] MEDS ORDERED: allopurinoL 300 MG TAB PO SCH (09:00)
[2022-09-05] MEDS ORDERED: FOLIC ACID 1MG TAB PO SCH (09:00)
[2022-09-05] MEDS ORDERED: AMIODARONE 200 MG TAB (PACERONE) PO SCH (09:00)
[2022-09-05] MEDS ORDERED: CALCITRIOL 0.25 MCG CAP (S0169) PO SCH (09:00)
== END 2022-09-05 10:58 | disposition hospice, home (50) | DRG 682 ==
LOC: M ED 15:22 → M ED INP 20:54 → ENRESERV 22:48 → M PCU 23:05 → M MSPAV 09-01 16:17
PROVIDERS: ADMIT Family Medicine; ATTEND Family Medicine
DX: N17.9 Acute kidney failure, unspecified (principal); I50.23 Acute on chronic systolic (congestive) heart failure; E87.20 Acidosis, unspecified; I13.0 Hypertensive heart and chronic kidney disease with heart failure and stage 1 through stage 4 chronic kidney disease, or unspecified chronic kidney disease; E87.5 Hyperkalemia; E78.5 Hyperlipidemia, unspecified; I48.91 Unspecified atrial fibrillation; E11.22 Type 2 diabetes mellitus with diabetic chronic kidney disease; E03.9 Hypothyroidism, unspecified; E86.0 Dehydration; Z51.5 Encounter for palliative care; Z66 Do not resuscitate; I25.10 Atherosclerotic heart disease of native coronary artery without angina pectoris; N18.4 Chronic kidney disease, stage 4 (severe); I44.7 Left bundle-branch block, unspecified; D63.1 Anemia in chronic kidney disease; R04.0 Epistaxis; M10.9 Gout, unspecified; J44.9 Chronic obstructive pulmonary disease, unspecified; G47.33 Obstructive sleep apnea (adult) (pediatric); D46.9 Myelodysplastic syndrome, unspecified; Z95.2 Presence of prosthetic heart valve; Z95.1 Presence of aortocoronary bypass graft; Z87.891 Personal history of nicotine dependence; R94.31 Abnormal electrocardiogram [ECG] [EKG]; Z79.84 Long term (current) use of oral hypoglycemic drugs; Z79.890 Hormone replacement therapy; Z79.899 Other long term (current) drug therapy